=== PATIENT | female | born 1940 | race Two or more races ===

== ENCOUNTER 2024-09-01 10:42 | Emergency (ER) | payer OTHER ==
[~2024-09-01] VITALS: Ht 162.6 cm; Wt 66.7 kg
[2024-09-01 11:11] VITALS: BP 160/80; O2SAT 97
[2024-09-01] MEDS ORDERED: METOCLOPRAMIDE HCL 10 MG in DEXTROSE 5 % IN WATER 50 ML IV ONE (11:30)
[2024-09-01] MEDS ORDERED: METOCLOPRAMIDE HCL 5 MG/ML VIAL ONE (11:30)
[2024-09-01] MEDS ORDERED: FAMOTIDINE/PF 20 MG/2 ML VIAL ONE (11:30)
[2024-09-01] MEDS ORDERED: FAMOtidine 10 MG/ML (4ML VIAL) IV SCH (11:30)
[2024-09-01 13:06] LABS: URINE BACTERIA 94.2 uL (0.0-1933); URINE RBC 12.5 uL (0.0-20.8); URINE WBC 59.6 uL (0.0-23.2)
[2024-09-01 13:10] LABS: URINE BILIRRUBIN SMALL (NEGATIVE); URINE BLOOD TRACE; URINE GLUCOSE NEGATIVE (NEGATIVE); URINE KETONE NEGATIVE (NEGATIVE); URINE LEUKOCYTE SMALL; URINE NITRATE NEGATIVE; URINE PROTEIN NEGATIVE (NEGATIVE); URINE UROBILINOGEN 0.2 E.U./dl
[2024-09-01 13:17] LABS: URINE CAST 1.32 uL (0.0-1.40)
[2024-09-01 13:18] LABS: URINE APPEARANCE CLEAR; URINE COLOR YELLOW
[2024-09-01 13:58] LABS: BASO % 0.2 % (0.1-1.2); EOS # 0.11 (0.04-0.54); EOS % 2.2 % (0.7-7.0); HEMATOCRIT 37.1 % (34.1-44.9); LYMPH # 2.38 (1.18-3.74); LYMPH % 47.7 % (19.3-53.1); MEAN CORPUSCULAR HEMOGLOBIN 29.3 pg (25.6-32.2); NEUT # 2.18 (1.56-6.13); NEUT % 43.7 % (34.0-71.1); PLATELET COUNT 170 K/uL (163-369); RED BLOOD COUNT 4.09 M/uL (3.93-5.22)
[2024-09-01 14:53] LABS: ALBUMIN 3.5 gm/dL (3.4-5.0); ALKALINE PHOSPHATASE 87 U/L (50-136); ALT/SGPT 32 U/L (12-78); AMYLASE 63 U/L (25-115); ANION GAP 10 (10.0-20.0); AST/SGOT 23 U/L (15-37); BILIRUBIN TOTAL 0.22 mg/dL (0.3-1.2); BILIRUBIN,CONJUGATED < 0.10 mg/dL (0.0-0.2); BILIRUBIN,UNCONJUGATED 0.12 mg/dL (0.0-0.6); BLOOD UREA NITROGEN 18 mg/dL (7-18); BUN CREA RATIO 24 (7.0-25.0); CALCIUM 9.1 mg/dL (8.5-10.1); CARBON DIOXIDE 30 mEq/L (21-32); CHLORIDE 110 mmol/L (98-107); CREATININE SERUM 0.76 mg/dL (0.55-1.02); GFR 72.68; GLUCOSE FASTING 104 mg/dL (65-100); LIPASE 41 U/L (13-75); OSMOLALITY SERUM 293 MOSM/KG (275-295); POTASSIUM 3.75 mEq/L (3.5-5.1); SODIUM 146 mmol/L (136-145)
== END 2024-09-01 16:21 | disposition home or self-care (01) ==
LOC: ER 11:00
PROVIDERS: General Practice
DX: K21.9 Gastro-esophageal reflux disease without esophagitis (principal); R10.13 Epigastric pain; K57.30 Diverticulosis of large intestine without perforation or abscess without bleeding; K59.00 Constipation, unspecified
CPT/HCPCS: 36415; 71046; 74176; 93005; 96365; 99284; J2765; J3490